=== PATIENT | female | born 1990 | race Caucasian/White ===

== ENCOUNTER 2017-01-17 08:02 | Emergency (ER) | payer MEDICARE, MEDICAID ==
[2017-01-17 08:11] VITALS: BP 127/77
--- NOTE | 2017-01-17 08:31 | ED Physician Chart ---
Chief Complaint/HPI - Patient Information Date Seen:: 01/17/17 Time Seen:: 08:12 Chief Complaint:: cough History of Present Illness:: Onset x 4 days of intermittent dry cough, congestion, S/T, pleuritic, sharp, Chest pains lasting a few seconds with some dyspnea; no exertional chest pain or exertional dyspnea; no Abd. pain, A/N/V/D/C, fever, chills Allergies:: Allergies Allergy/AdvReac Type Severity Reaction Status Date / Time No Known Allergies Allergy Verified 01/17/17 08:11 Vitals:: Vital Signs - 8 hr 01/17/17 01/17/17 08:11 08:13 Temp 98.6 F HR 72 RR 16 BP 127/77 127/77 O2 Sat % 100 Historian:: Patient Review:: Nurse's Note Reviewed Review of Systems - Review of Systems General/Constitutional: Fever, Chills, No weight loss, No weakness, No diaphoresis, No edema, No loss of appetite Skin: No skin lesions, No rash, No bruising Head: No headache, No light-headedness Eyes: No loss of vision, No pain, No diplopia ENT: No earache, Nasal drainage, Sore throat, No tinnitus Neck: No neck pain, No swelling, No thyromegaly, No stiffness, No mass noted Cardio Vascular: Chest pain, Palpitations, No PND, No orthopnea, No edema Pulmonary: SOB, Cough, No sputum, No wheezing GI: Nausea, Vomiting, Diarrhea, No pain, No melena, No hematochezia, No constipation, No hematemesis G/U: No dysuria, No frequency, No hematuria Musculoskeletal: No bone or joint pain, No back pain, No muscle pain Endocrine: No polyuria, No polydipsia Psychiatric: No prior psych history, No depression, No anxiety, No suicidal ideation Hematopoietic: No bruising, No lymphadenopathy Allergic/Immuno: No urticaria, No angioedema Neurological: No syncope, No focal symptoms, No weakness, No paresthesia, No headache, No seizure, No dizziness, No confusion, No vertigo Past Medical History - Past Medical History Past Medical History: No significant medical hx Family History: None Social History: Non Smoker, No Alcohol, No Drug Use Surgical History: None Psychiatricy History: None Medication: Reviewed Family Medical History - Family Member Mother History Unknown: Yes Ethnicity: Living Status: Still Living Hx Family Cancer: No Hx Family Stroke: No Hx Family Diabetes: No Hx Family Dementia: No Hx Family AIDS: No Hx Family HIV: No Hx Family COPD: No Hx Family Psychiatric Problems: No Hx Family Tuberculosis: No Physical Exam - Physical Examination General/Constitutional: Awake, Well-developed, well-nourished, Alert, No distress, GCS 15, Non-toxic appearing, Ambulatory Head: Atraumatic Eyes: Lids, conjuctiva normal, PERRL, EOMI Skin: Nl inspection, No rash, No skin lesions, No ecchymosis, Well hydrated, No lymphadenopathy ENMT: External ears, nose nl, Nasal exam nl, Lips, teeth, gums nl Neck: Nontender, Full ROM w/o pain, No JVD, No nuchal rigidity, No bruit, No mass, No stridor Respiratory: Nl effort/Exclusion, Clear to Auscultation Other Respiratory comments:: Lungs: few scattered prolonged expiratory wheezes Cardio Vascular: RRR, No murmur, gallop, rubs, NL S1 S2 GI: No tenderness/rebounding/guarding, No organomegaly, No hernia, Normal BS's, Nondistended, No mass/bruits, No McBurney tenderness : No CVA tenderness Extremities: No tenderness or effusion, Full ROM, normal strength in all extremities, No edema, Normal digits & nails Neuro/Psych: Alert/oriented, DTR's symmetric, Normal sensory exam, Normal motor strength, Judgement/insight normal, Mood normal, Normal gait, No focal deficits Misc: normal gait, Normal back, No paraspinal tenderness Labs/Radiology/EKG Results - Lab Results Comments:: UCG: Negative - Radiology Results Results: CXR: Negative; NAD - EKG Interpretations EKG Time:: 08:25 Rate & Rhythm: 65; NSR [place]: WNL Comments:: WNL ED Septic Shock - . Is Septic Shock (SBP<90, OR Lactate>4 mmol\L) present?: No - <6hrs of presentation: Vital Signs: Vital Signs - 8 hr 01/17/17 01/17/17 08:11 08:13 Temp 98.6 F HR 72 RR 16 BP 127/77 127/77 O2 Sat % 100 Reassessment (Disposition) - Reassessment Reassessment:: pt has no dyspnea; pt has no C/P; PE: pt in no respiratory distress; no chest cage retractions; no usu of accesory muscles; Lungs: Clear with good breath sounds bilaterally Reassessment Condition:: Improved - Diagnosis Diagnosis:: Bronchitis; Fever; Asthma; Dyspnea, Chest Pain; URI; Pleuritis; C/P-resolved; SOB-resolved - Aftercare/Follow up Instructions Aftercare/Follow-Up Instructions:: Counseled pt regarding lab results/diagnosis & need follow up, Refer to Discharge Instructions, Counseled pt & family regarding lab results/diagnosis & need follow up Medication Prescribed:: Rx: Amoxicillin 500mg po tid x 10 days; Tylenol 500mg po qid prn fever; Proventil Inhaler: 2 puffs qid prn wheezing; Cool Mist Vaporizer - Patient Disposition Discharge/Transfer:: Home Condition at Disposition:: Stable, Improved (RTER prn if existing s/s reoccur and/or get worse and/or any other new s/s occur; ACIs given for all above Dx; X- Rays Instructions; F/U with PMD in one day or prn; refer to Warehouse Shipper/ Professor Of Music/Hospitality Specialist [facility]; RTER prn if concerned) ED Discharge Plan - Patient Disposition Prescriptions: Acetaminophen [Tylenol] 500 mg PO Q4HR PRN #0 tab PRN Reason: Fever > 101 Albuterol Sulfate [Proventil Hfa*] 0.09 mg IH QID PRN #0 joselito PRN Reason: Wheezing Amoxicillin [Amoxicillin*] 500 mg PO TID #0 tablet Instructions: Bronchitis, [id number], Upper Respiratory Infection, Adult, [id number], Fever, Adult, [id number] Accepting Physician: , Primary [Other] - 1-3 Days
[2017-01-17] MEDS ORDERED: Albuterol/Ipratropium Neb 3 ML AERS HHN ONE ×2 (09:10→09:19)
--- NOTE | 2017-01-17 09:42 | Diagnostic Imaging Report ---
Chest x-ray single view History: Shortness of breath The heart size is normal. No focal pulmonary parenchymal processes. No hilar or mediastinal abnormalities. Impression: No acute abnormalities
== END 2017-01-17 09:45 | disposition home or self-care (01) ==
LOC: ER 08:02
DX: J40 Bronchitis, not specified as acute or chronic (principal); J45.909 Unspecified asthma, uncomplicated; R07.9 Chest pain, unspecified; R09.1 Pleurisy; J06.9 Acute upper respiratory infection, unspecified
CPT/HCPCS: 71010-TC; 81025-TC; 93005; 94640